=== PATIENT | female | born 1955 | race Caucasian/White ===

== ENCOUNTER 2016-10-22 07:04 | Day surgery (SDC) | payer OTHER ==
[~2016-10-22] VITALS: Ht 167.6 cm; Wt 77.1 kg
[~2016-10-22 07:04] MED LIST: BUPR150T8 PO; CALC-235 PO; FLUT9.9S NS; LOVA40TA PO; Sodium Chloride LOK Flush 10 mL Syringe IV PRN; fentaNYL-PF 50 mCg/mL 2 mL Inj IVPUSH PRN
[2016-10-22 07:21] VITALS: BP 112/64; PULSE 89; RESP 16; O2SAT 100
[2016-10-22] MEDS ORDERED: [UNRECOGNIZED DRUG - CODE] MC (07:23)
[2016-10-22] MEDS: 0.9% Sodium Chloride 1,000 ML IV SCH ×2 (07:33→08:01)
[2016-10-22 08:43] VITALS: BP 82/64; PULSE 75; RESP 14; O2SAT 98
[2016-10-22 08:55] VITALS: BP 92/53; PULSE 84; RESP 16; O2SAT 98
[2016-10-22 08:58] VITALS: BP 103/55; PULSE 83; RESP 16; O2SAT 100
--- NOTE | 2016-10-22 09:01 | ENDO ---
[address] [address] ENDOSCOPY PROCEDURE PATIENT: FERNANDO MONTANO : 1955 MR#: [id number] ADMIT: 10/22/2016 JOB ID: [id number] DATE: 10/22/2016 PROCEDURE: Colonoscopy with hot snare polypectomy. INDICATIONS: A 61-year-old female with a personal history of colon polyps returning for surveillance. EQUIPMENT: PCF H 180 AL. SEDATION: 1. 5 mg Versed. 2. 100 mcg fentanyl. COMPLICATIONS: None identified. BOWEL PREPARATION: Fair, adequate examination. PROCEDURE INFORMATION: After the risks and benefits were explained, written and verbal informed consent was obtained. The patient was brought into the endoscopy suite and placed into the left lateral decubitus position. Sedation was achieved using the above-stated medications with the addition of oxygen via nasal cannula. A digital rectal examination was accomplished and no significant pathology appreciated. The scope was introduced into the rectum and advanced under direct visualization to the cecum as identified by the appendiceal orifice and ileocecal valve. The scope was slowly withdrawn to carefully examine the mucosa for any defects or lesions. Retroflexed views were accomplished in the rectum. The colon was decompressed. The scope removed from the patient who tolerated the procedure well. FINDINGS: There was a small 6-7 mm polyp in the cecum removed with hot snare. In the distal transverse, there was an approximately 7-8 mm polyp removed with hot snare. There was some mild diverticulosis in the left colon. The patient had a very tortuous, redundant colon. Navigation was challenging to cecum. Retroflexed views from within the rectum were unremarkable. ENDOSCOPIC DIAGNOSES: 1. Colon polyps. 2. Diverticulosis. RECOMMENDATIONS: 1. Await histopathology. 2. Repeat colonoscopy five years.
--- NOTE | 2016-10-23 16:27 | PATH ---
SURGICAL PATHOLOGY Attending Physician:Kathi Sharpe CASE STATUS: Signed Out PATIENT NAME: FERNANDO MONTANO PID: [id number] : 1955 DATE COLLECTED:10/22/2016 16:11 SPECIMEN: 1: Colon, Biopsy 2: Colon, Biopsy CLINICAL HISTORY: A: TRANSVERSE POLYP X1 B: CECAL POLYP X1 FINAL DIAGNOSIS: 1.TRANSVERSE COLON, POLYP, BIOPSY: TUBULAR ADENOMA. 2.CECUM, POLYP, BIOPSY: SESSILE SERRATED ADENOMA. ICD10 CODE D12.3 D12.0 GROSS DESCRIPTION: The specimen is received in two formalin filled containers labeled with the patient's name. 1). The specimen is sublabeled "transverse polyp X1" are 4 fragments of spence, soft tissue which range in size from 0.2 x 0.2 x 0.2 CM to 0.3 x 0.3 x 0.2 CM. All fragments are totally submitted in cassette 1A. 2). The specimen is sublabeled "cecal polyp" and consists of a 0.5 x 0.4 x 0.3 CM portion of tissue which is entirely submitted in cassette 2A. 10/22/2016 DAC MICRO DESCRIPTION: See diagnosis. ICD-9 CODES: CPT CODES: 1: 83781 2: 38008 Electronically Signed Out Elsa Balderas MD [facility] Pathology [facility] [address], [place] [address] Technical component performed at [facility], [facility] [address], [place], [address]
== END 2016-10-22 23:59 | disposition home or self-care (01) ==
LOC: END 07:04
PROVIDERS: ATTEND Internal Medicine Gastroenterology
DX: Z12.11 Encounter for screening for malignant neoplasm of colon (principal); Z86.010 Personal history of colon polyps; D12.0 Benign neoplasm of cecum; D12.3 Benign neoplasm of transverse colon; K57.30 Diverticulosis of large intestine without perforation or abscess without bleeding
CPT/HCPCS: 45385; 99153; G0500; J2250; J3010; J7030